=== PATIENT | male | born 1960 | race Caucasian/White ===

== ENCOUNTER 2016-08-26 19:10 | Observation (INO) | payer OTHER ==
--- NOTE | ~2016-08-26 | OR ---
Unit #: [id number] #: [id number] Patient: DAYANA BENNETT [id number] [address] [place], [place] [address] [id number] Curry MR#: [id number] NAME: DAYANA BENNETT ROOM: [facility] Date of Procedure: 08/27/2016 Admission Date: 08/27/2016 Surgeon: Chago Banks M.D. : 1960 Attending Physician: Wei Mathews Jr., M.D. OPERATIVE REPORT PREOPERATIVE DIAGNOSIS Cholecystitis. POSTOPERATIVE DIAGNOSIS Cholecystitis. PROCEDURE PERFORMED Laparoscopic cholecystectomy. EDUCATIONAL AUDIOLOGIST Nino Grewal M.D. ANESTHESIA General endotracheal anesthesia. ESTIMATED BLOOD LOSS Minimal. IV FLUIDS 800 crystalloid. COMPLICATIONS None. INDICATIONS FOR PROCEDURE The patient is a 56-year-old with right upper quadrant abdominal pain. Findings on CT scan are consistent with acute cholecystitis. DESCRIPTION OF PROCEDURE The patient was taken to the operative theater and placed in supine position. General anesthesia was induced. His abdomen was prepped and draped. A 5-mm Optiview trocar was placed in the right upper quadrant without difficulty. The abdomen was insufflated to 15 mmHg with CO2. Under direct vision, I placed a subxiphoid 10 mm, right lateral 5 mm, umbilical 5 mm. General inspection of the abdomen revealed acute cholecystitis with distended gallbladder. This was decompressed with needle decompression system. I then was able to grasp this over the liver. I dissected the neck of the gallbladder and identified the cystic duct. Its junction with the gallbladder was confirmed. It was thus skeletonized, doubly hemoclipped, and divided. The cystic artery laid immediately posterior. This was skeletonized, doubly hemoclipped, and divided. The gallbladder was removed from gallbladder bed with Bovie Unit #: [id number] #: [id number] Patient: DAYANA BENNETT electrocautery and delivered via the subxiphoid port. Hemostasis was adequate. I irrigated thoroughly with normal saline and aspirate all fluids dry. I then removed the ports and closed the fascia with 0 Vicryl and skin with 4-0 Vicryl. The patient tolerated the procedure well and sent to recovery room in good condition. Dictated by... Yaya Constantino/lizbeth TD: 08/28/2016 01:34 JOB #: [id number] OPERATIVE REPORT Page 1 of 1 X Chago Banks MD PROCEDURE OPERATIVE NOTE
--- NOTE | ~2016-08-26 | US67 ---
[facility] A Service of [facility] RADIOLOGY TEXT RESULTS PATIENT: DAYANA BENNETT LOCATION: [place] [address] : [birth year] UNIT #: [id number] AGE: [address]: Wei Mathews MD SEX: M ORDER DR: [id number] [place] [id number] [facility]. [place], [place] [address] [id number] I MR#: [id number] Acc #: [id number] NAME: DAYANA BENNETT : 1960 SEX: M STUDY DATE/TIME: 08/27/2016 0:34 UNIT: CEDOF ROOM: 19015 STUDY DESCRIPTION: US Gallbladder Attending Physician: Wei Mathews Jr., M.D. Ordering Physician: Julian Skaggs M.D. Primary Care Physician: Primary Care Physician No MEDICAL IMAGING REPORT This report is preliminary unless electronic signature is present EXAM Gallbladder ultrasound HISTORY Abdominal pain for 3 days. FINDINGS The pancreas is poorly visualized. The liver is normal in echogenicity. There is no biliary distension. The right kidney is 10.2 cm in length and appears normal. The gallbladder is distended. There is a large 2.2 cm stone in the gallbladder neck. The common bile duct is 3.0 mm in diameter. Gallbladder wall is 5.0 mm in thickness. IMPRESSION 2.2 cm gallstone with borderline thickening of the gallbladder wall. There is no pericholecystic fluid. Otherwise the study is normal. Dictated by... Dane Hensley M.D. THIS IS AN ELECTRONICALLY VERIFIED REPORT Dane Hensley M.D. at 08/27/2016 12:38 PM ONEIDA/casimiro TD: 08/27/2016 09:40 JOB #: [id number] MEDICAL IMAGING REPORT Page 1 of 1 COPY
--- NOTE | ~2016-08-26 | CT2 ---
[facility] A Service of [facility] RADIOLOGY TEXT RESULTS PATIENT: DAYANA BENNETT LOCATION: [facility] : [birth year] UNIT #: [id number] AGE: [address]: Wei Mathews MD SEX: M ORDER DR: [id number] [place] [id number] [facility]. [place], [place] [address] [id number] I MR#: [id number] Acc #: [id number] NAME: DAYANA BENNETT : 1960 SEX: M STUDY DATE/TIME: 08/26/2016 23:23 UNIT: CEDOF ROOM: 15124 STUDY DESCRIPTION: CT Abd and Pelv W Cont Attending Physician: Wei Mathews Jr., M.D. Ordering Physician: Julian Skaggs M.D. Primary Care Physician: No Primary Care Physician MEDICAL IMAGING REPORT This report is preliminary unless electronic signature is present EXAM CT abdomen and pelvis with contrast. HISTORY Abdominal pain and cramping for 3 days. Left-side greater than right. COMPARISON There is no comparison. TECHNIQUE Axial 5 mm images were obtained through the abdomen and pelvis. The patient was given 100 mL of Isovue-370 and oral contrast was also administered. This CT exam was performed with one or more of the following radiation dose reduction techniques: automatic exposure control, adjustment of mA and/or kV according to patient size, and iterative reconstruction. FINDINGS The lung bases are clear. The liver is normal except for some hyperemia around the gallbladder. The gallbladder has a large 2.1 cm stone within it and it lies in the neck region. The gallbladder is distended and there is slight enhancement of the wall. The spleen, pancreas, adrenal glands, and kidneys are normal. The aorta is normal in size and the bowel is normal. The bladder and prostate gland are normal. The bones are unremarkable. IMPRESSION 1. There is a large 2 cm stone in the proximal gallbladder perhaps lodged in the neck region and there is some mild focal wall thickening around this portion of the gallbladder. The rest of the gallbladder is distended and shows mild wall enhancement. [facility] A Service of [facility] RADIOLOGY TEXT RESULTS PATIENT: DAYANA BENNETT LOCATION: [facility] [id number] : [birth year] UNIT #: [id number] AGE: [address]: Wei Mathews MD SEX: M ORDER DR: 2. Otherwise, the study is normal. Dictated by... Dane Hensley M.D. THIS IS AN ELECTRONICALLY VERIFIED REPORT Dane Hensley M.D. at 08/27/2016 12:39 PM ONEIDA/cielo TD: 08/27/2016 09:35 JOB #: [id number] MEDICAL IMAGING REPORT Page 1 of 1 COPY
--- NOTE | ~2016-08-26 | DS ---
Unit #: [id number] #: [id number] Patient: DAYANA BENNETT [id number] [address] [address] [id number] I MR#: [id number] NAME: DAYANA BENNETT ROOM: [facility] Age: 56 Sex: M Admission Date: 08/27/2016 : 1960 Discharge Date: 08/28/2016 Attending Physician: Wei Mathews Jr., M.D. Primary Care Physician: No Primary Care Physician DISCHARGE SUMMARY DISCHARGE DIAGNOSIS Acute cholecystitis with cholelithiasis. OPERATIVE PROCEDURE Laparoscopic cholecystectomy. DISCHARGE MEDICATION Percocet, one p.o. q.4 hours p.r.n. pain. HISTORY OF PRESENT ILLNESS/HOSPITAL COURSE This is a 56-year-old white male who presented with mid epigastric/right upper quadrant abdominal pain, nausea, vomiting. CT scan showed gallstone lodged in the neck of the gallbladder consistent with cholecystitis. He was also noted to have a positive H. pylori screen. He also had normal liver function tests. His alcohol level was normal. It was explained to the patient that he had acute cholecystitis. He was taken to surgery. Laparoscopic cholecystectomy was performed. The patient tolerated the procedure well. Postoperative day #1, his vital signs are stable. Alert, awake. He has tolerated his diet. His wound looks good. There was some bleeding from the top port but it is stopped. His abdomen is nondistended. Incisions are tender, otherwise, he is ready to be discharged. Come back to see us in the office for followup evaluation in approximately seven to ten days. He is to do no heavy lifting. He will be able to take a shower. Dictated by... Jose Martin Walker M.D. FALLON/isrrael TD: 08/28/2016 09:29 JOB #: [id number] Unit #: [id number] #: [id number] Patient: DAYANA BENNETT DISCHARGE SUMMARY Page 1 of 1 X Jose Martin Walker MD X DISCHARGE SUMMARY
--- NOTE | ~2016-08-26 | CO ---
Unit #: [id number] #: [id number] Patient: DAYANA BENNETT [id number] [address] [place], [place] [address] [id number] I MR#: [id number] NAME: DAYANA BENNETT ROOM: 8[address]56 Age: 56 Sex: M Admission Date: 08/27/2016 : 1960 Attending Physician: Wei Mathews Jr., M.D. Consultation Date: 08/27/2016 CONSULTATION REPORT BRIEF HISTORY The patient is a 56-year-old gentleman, who presents with 3-day history of epigastric and right upper quadrant abdominal pain, some nausea. No vomiting. No fevers or chills. No history of similar type pain. He has had normal bowel movements. PAST MEDICAL HISTORY Diabetes. PAST SURGICAL HISTORY He has had no abdominal operations. SOCIAL HISTORY Does smoke. No alcohol. FAMILY HISTORY Negative for GI malignancy. REVIEW OF SYSTEMS No cardiopulmonary complaints at this time. Else, 10 systems reviewed and negative. MEDICATIONS He is on no medications. PHYSICAL EXAMINATION GENERAL: He is awake, alert, in no distress. VITAL SIGNS: Currently, afebrile. HEENT: Unremarkable. NECK: Supple. No JVD. Trachea midline. LUNGS: Clear to auscultation. Bilateral breath sounds symmetric. CARDIOVASCULAR: Regular rate and rhythm. ABDOMEN: Soft. It is tender in the right upper quadrant and mid epigastric region. There is no rebound. No masses palpable. No point tenderness. EXTREMITIES: No clubbing, cyanosis, or edema. DIAGNOSTIC STUDIES LABORATORY RESULTS: Showed normal white count, normal hemoglobin. Liver function studies are normal with alkaline phosphatase mildly elevated at 112. IMAGING STUDIES: CT scan shows gallstones with stone lodged at the neck. Unit #: [id number] #: [id number] Patient: DAYANA BENNETT ASSESSMENT Cholecystitis. PLAN Recommend laparoscopic cholecystectomy. Discussed in detail. We will plan at earliest in advance. Dictated by... Chgao Banks M.D. SARBJIT/lizbeth TD: 08/27/2016 07:23 JOB #: [id number] CONSULTATION REPORT Page 1 of 1 X Chago Banks MD CONSULTATION REPORT
[~2016-08-26 19:10] MED LIST: ACETAMINOPHEN PO; NO MEDICATIONS; ZITHROMAX1 G/PKT PO
[2016-08-26 20:29] LABS: BASOPHIL# 0.1 X10e3 (0-0.3); BASOPHIL% 0.7 % (0-2.5); EOSINOPHIL# 0.1 X10e3 (0-0.7); EOSINOPHIL% 1.2 % (0.0-7.0); HEMATOCRIT 45.7 % (38.0-50.0); HEMOGLOBIN 15.1 gm/dL (13.0-16.0); LYMPHOCYTE# 1.8 X10e3 (1.0-3.5); MEAN CELL VOLUME 92.3 FL (83-96); MEAN CORPUSCULAR HEMOGLOBIN 30.5 PG (28-34); MEAN PLATELET VOLUME 9.7 FL (6.5-11.5); MONOCYTE# 0.8 X10e3 (0-1.0); MONOCYTE% 7.9 % (3.0-12.0); NEUTROPHIL# 7.6 X10e3 (1.5-7.1); NEUTROPHIL% 73.2 % (40-75); PLATELET COUNT 171 X10e3 (140-420); RED BLOOD COUNT 4.95 X10e (3.90-5.60); RED CELL DISTRIBUTION WIDTH 13.5 % (11.0-15.5); WHITE BLOOD COUNT 10.4 X10e3 (4.0-10.5)
[2016-08-26 20:33] LABS: DIFF IND NO
[2016-08-26 20:50] LABS: BILIRUBIN, DIRECT 0.1 mg/dL (0.0-0.2); BILIRUBIN,INDIRECT 0.7 mg/dL (0.0-0.9); BILIRUBIN,TOTAL 0.8 mg/dL (0.2-2.0); BUN/CREATININE RATIO 8.18; CALCIUM SERUM 9.2 mg/dL (8.4-10.2); CREATININE SERUM 1.1 mg/dL (0.6-1.4); GLOM FILT RATE Estimated 75.7 mL/min (>60); POTASSIUM 3.9 mmol/L (3.5-5.1); PROTEIN TOTAL SERUM 7.9 g/dL (6.0-8.3)
[2016-08-26 23:09] LABS: URINE SOURCE CLEAN CATCH
[2016-08-26 23:15] LABS: URINE APPEARANCE CLEAR; URINE BILIRUBIN NEG (NEG); URINE BLOOD 1+ (NEG); URINE COLOR YELLOW; URINE GLUCOSE NEG (NEG); URINE KETONE 3+ (NEG); URINE LEUKOCYTE ESTERASE NEG (NEG); URINE NITRATE NEG (NEG); URINE PROTEIN NEG (NEG); URINE SPECIFIC GRAVITY 1.019 (1.003-1.035)
[2016-08-26 23:18] LABS: URINE BACTERIA AUWI NEG (NEGATIVE); URINE SQUAMOUS EPITHELIAL CELL NONE SEEN /[HPF]; UWBCS1 AUWI 0-2 (0-5)
[2016-08-26 23:26] LABS: CULTURE INDICATED? NO
[2016-08-26 23:28] LABS: AMPHETAMINE NEG (NEG); BARBITURATES NEG (NEG); BENZODIAZEPINES NEG (NEG); COCAINE NEG (NEG); MARIJUANA NEG (NEG); OPIATES POS (NEG); TRICYCLIC ANTIDEPRESSANTS NEG (NEG); U METHADONE NEG (NEG)
[2016-08-27] MEDS ORDERED: NO MEDICATIONS (07:29)
[2016-08-28] MEDS ORDERED: PERCOCET5/325 PO (07:40)
== END 2016-08-28 09:37 | disposition home or self-care (01) ==
LOC: CED 19:10 → CEDOF 08-27 01:30 → C2A 08-27 01:36 → CEDOF 08-27 01:36 → CED 08-27 01:36 → C2A 08-27 11:15 → CEDOF 08-27 11:15 → C2A 08-28 09:37
PROVIDERS: Emergency Medicine
DX: K80.00 Calculus of gallbladder with acute cholecystitis without obstruction (principal); F17.200 Nicotine dependence, unspecified, uncomplicated
CPT/HCPCS: 36415; 74177; 76705; 80048; 80076; 80307; 81003; 82150; 83690; 85025; 86677; 88304; 96361; 96374; 96375; 96376; 99285; C9113; G0378; G0480; J0330; J1100; J1170; J1885; J2250; J2270; J2405; J2543; J2550; J2710; J2765; J3010; Q9967

== ENCOUNTER 2016-09-12 10:32 | Emergency (ER) | payer OTHER ==
--- NOTE | ~2016-09-12 | CT16 ---
[facility] A Service of [facility] RADIOLOGY TEXT RESULTS PATIENT: DAYANA BENNETT LOCATION: [facility] : [birth year] UNIT #: [id number] AGE: [address]: Nataliia Waller MD SEX: M ORDER DR: [id number] [place] [id number] [place], [place] [address] [id number] E MR#: [id number] Acc #: [id number] NAME: DAYANA BENNETT : 1960 SEX: M STUDY DATE/TIME: 09/12/2016 14:41 UNIT: [facility] ROOM: STUDY DESCRIPTION: CT Angio Chest for PE Attending Physician: Nataliia Waller M.D. Ordering Physician: Nataliia Waller M.D. Primary Care Physician: No Primary Care Physician MEDICAL IMAGING REPORT This report is preliminary unless electronic signature is present EXAM CTA chest INDICATIONS Chest tightness for 1 day. Syncope. Elevated D-dimer. TECHNIQUE CT angiography of the chest utilizing 80 mL Isovue-370 IV contrast. Coronal 3-D MIP reconstructions and standard sagittal reconstructions were obtained. This CT exam was performed with one or more of the following radiation dose reduction techniques: Automatic exposure control, adjustment of mA and/or kV according to patient size, and iterative reconstruction. COMPARISON CTA chest dated 07/09/2010. FINDINGS No pulmonary embolus. No thoracic aortic aneurysm or dissection. No pericardial or pleural effusion. There is moderate emphysema. Central airways are patent. No focal consolidation. Limited images of the upper abdomen were obtained. There is no significant abnormalities. No acute osseous abnormalities. IMPRESSION [facility] A Service of [facility] RADIOLOGY TEXT RESULTS PATIENT: DAYANA BENNETT LOCATION: [facility] : [birth year] UNIT #: [id number] AGE: [address]: Nataliia Waller MD SEX: M ORDER DR: 1. Negative for pulmonary embolus. 2. No acute findings in the chest. 3. COPD. Dictated by... Destin P. Elijah, M.D. THIS IS AN ELECTRONICALLY VERIFIED REPORT Destin Nava M.D. at 09/13/2016 8:14 AM AMARILIS/inocente TD: 09/12/2016 16:16 JOB #: [id number] MEDICAL IMAGING REPORT Page 1 of 1 COPY
--- NOTE | ~2016-09-12 | CR2 ---
[facility] A Service of [facility] RADIOLOGY TEXT RESULTS PATIENT: DAYANA BENNETT LOCATION: [facility] : 64 UNIT #: [id number] AGE: [address]: Nataliia Waller MD SEX: M ORDER DR: [id number] [facility] [address] [facility]. [place], [place] [address] [id number] E MR#: [id number] Acc #: [id number] NAME: DAYANA BENNETT : 1960 SEX: M STUDY DATE/TIME: 09/12/2016 11:12 UNIT: EDDA ROOM: STUDY DESCRIPTION: CR Abdomen Acute Series Attending Physician: Nataliia Waller M.D. Ordering Physician: Nataliia Waller M.D. Primary Care Physician: Primary Care Physician No MEDICAL IMAGING REPORT This report is preliminary unless electronic signature is present EXAM Acute abdominal series 09/12/2016 HISTORY Vomiting. Gallbladder surgery x2 weeks ago. Sent from Dr. Mathews's office, abdomen pain, nausea, vomiting, short of air. TECHNIQUE AP radiograph of the chest is presented with supine and upright radiographs of the abdomen and pelvis. FINDINGS Bony structures of the thorax show mild degenerative changes in the spine. Hair artifact overlying the upper thorax. Heart normal in size. Lungs hyperinflated. Correlate with any known underlying chronic airway disease. There is no indication of acute pulmonary disease, pleural effusion or pneumothorax. No suspicious nodule. Abdominal radiographs degraded by extensive clothing or bed clothing artifact overlying relevant anatomy. Surgical clips right upper quadrant most likely from prior cholecystectomy. No free air. Bowel gas pattern normal. Where visible solid organ contours are unremarkable. Calcified phleboliths in the pelvis. Dictated by... Chago Brown M.D. THIS IS AN ELECTRONICALLY VERIFIED REPORT Chago Brown M.D. at 09/13/2016 6:42 PM JSK/to [facility] A Service of [facility] RADIOLOGY TEXT RESULTS PATIENT: DAYANA BENNETT LOCATION: [facility] : 64 UNIT #: [id number] AGE: [address]: Nataliia Waller MD SEX: M ORDER DR: TD: 09/12/2016 12:44 JOB #: [id number] MEDICAL IMAGING REPORT Page 1 of 1 COPY
--- NOTE | ~2016-09-12 | EKG ---
PATIENT: DAYANA BENNETT UNIT #: [id number] Ventricular Rate: 66 BPM Atrial Rate: 66 BPM P-R Interval: 164 ms QRS Duration: 90 ms Q-T Interval: 392 ms QTC Calculation(Bezet): 410 ms P [place]: 74 degrees Calculated R [place]: 96 degrees Calculated T [place]: 65 degrees Diagnosis Line: Normal sinus rhythm Diagnosis Line: Rightward axis Diagnosis Line: Borderline ECG Diagnosis Line: When compared with ECG of 09-JUL-2010 11:45, Diagnosis Line: No significant change was found Diagnosis Line: Confirmed by JERI LOZANO MD ([id number]) on Diagnosis Line: 09/12/2016 11:13:05 AM INTERPRETING MD: KIRA
[~2016-09-12 10:32] MED LIST changes: +PERCOCET5/325 PO
[2016-09-12 11:05] LABS: BASOPHIL# 0.1 X10e3 (0-0.3); BASOPHIL% 0.7 % (0-2.5); EOSINOPHIL# 0.5 X10e3 (0-0.7); HEMATOCRIT 45.1 % (38.0-50.0); HEMOGLOBIN 14.7 gm/dL (13.0-16.0); LYMPHOCYTE# 2.4 X10e3 (1.0-3.5); LYMPHOCYTE% 20.4 % (17.0-45.0); MEAN CELL VOLUME 92.7 FL (83-96); MEAN CORPUSCULAR HEMOGLOBIN 30.2 PG (28-34); MEAN CORPUSCULAR HGB CONC 32.6 g/dL (30-36); MEAN PLATELET VOLUME 9.6 FL (6.5-11.5); MONOCYTE# 0.7 X10e3 (0-1.0); MONOCYTE% 5.6 % (3.0-12.0); NEUTROPHIL# 8.1 X10e3 (1.5-7.1); NEUTROPHIL% 69.3 % (40-75); PLATELET COUNT 197 X10e3 (140-420); RED BLOOD COUNT 4.87 X10e (3.90-5.60); RED CELL DISTRIBUTION WIDTH 13.7 % (11.0-15.5); WHITE BLOOD COUNT 11.7 X10e3 (4.0-10.5)
[2016-09-12 11:07] LABS: DIFF IND NO
[2016-09-12 11:31] LABS: URINE SOURCE CLEAN CATCH
[2016-09-12 11:32] LABS: POC - CKMB <1.0 ng/mL (0.0-7.9); POC - TROPONIN <0.05 ng/mL (<=0.05)
[2016-09-12 11:32] LABS: ALBUMIN SERUM 3.9 g/dL (3.5-5.0); BILIRUBIN, DIRECT 0.1 mg/dL (0.0-0.2); BILIRUBIN,INDIRECT 0.4 mg/dL (0.0-0.9); BILIRUBIN,TOTAL 0.5 mg/dL (0.2-2.0); BUN/CREATININE RATIO 12.5; CALCIUM SERUM 9.1 mg/dL (8.4-10.2); CREATININE SERUM 1.2 mg/dL (0.6-1.4); GLOM FILT RATE Estimated 68.2 mL/min (>60); POTASSIUM 3.8 mmol/L (3.5-5.1); PROTEIN TOTAL SERUM 7.5 g/dL (6.0-8.3)
[2016-09-12 11:37] LABS: URINE APPEARANCE CLEAR; URINE BILIRUBIN NEG (NEG); URINE BLOOD 1+ (NEG); URINE COLOR DK YELLOW; URINE GLUCOSE NEG (NEG); URINE KETONE NEG (NEG); URINE LEUKOCYTE ESTERASE NEG (NEG); URINE NITRATE NEG (NEG); URINE PROTEIN NEG (NEG); URINE SPECIFIC GRAVITY 1.026 (1.003-1.035)
[2016-09-12 11:39] LABS: URINE BACTERIA AUWI NEG (NEGATIVE); URINE SQUAMOUS EPITHELIAL CELL NONE SEEN /[HPF]; UWBCS1 AUWI 0-2 (0-5)
[2016-09-12 11:41] LABS: CULTURE INDICATED? NO
[2016-09-12 12:59] LABS: POC - CKMB <1.0 ng/mL (0.0-7.9); POC - TROPONIN <0.05 ng/mL (<=0.05)
== END 2016-09-12 16:00 | disposition home or self-care (01) ==
LOC: CED 10:32
PROVIDERS: Student in an Organized Health Care Education/Training Program
DX: R55 Syncope and collapse (principal); J44.9 Chronic obstructive pulmonary disease, unspecified; F17.210 Nicotine dependence, cigarettes, uncomplicated; Z90.49 Acquired absence of other specified parts of digestive tract
CPT/HCPCS: 36415; 71275; 74022; 80048; 80076; 81003; 82150; 82553; 82947; 83690; 84484; 85025; 85379; 93005; 96361; 96374; 99284; J2405; Q9967